=== PATIENT | female | born 1970 | race Caucasian/White ===

== ENCOUNTER 2018-05-27 11:00 | Outpatient (RCR) | payer MEDICAID, SELFPAY ==
--- NOTE | 2018-05-13 13:33 | HMH.OTOPEV ---
OT Inpatient Evaluation Rehab OT Outpatient Eval Start: 05/13/18 13:21 Freq: Status: Active Protocol: Document 05/13/18 13:21 TFRY (Rec: 05/13/18 13:33 TFRY [id number]) Electronically Signed By Kenyatta Multani, OT 05/13/18 13:21 Outpatient Therapy Subjective History Subjective History This is a 47 year old right handed female referred to occupational therapy for left shoulder pain - concerned for LHBT pathology,+/- RTC tendinopathy vs. tear + shoulder stiffness. Patient is unable to recall doing anything spefic to her shoulder. Reports that the pain started approximately 1 month ago and has continued worse. 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 Sleeping Symptom Description Activity Dependent Level of pain today (0-10) 0 Pain scale - at its best (0-10) 0 Pain scale - at its worst (0-10) 9 Shoulder/Elbow Eval Shoulder Objective Measurements Palpation Tenderness tenderness shoulder exam standard left tenderness over the bicipital tendon left shoulder exam standard Shoulder Palpation Findings Tenderness Shoulder ROM Left Shoulder ROM Limitations Pain Shoulder Abduction Active Range of 85 Motion (degrees) Shoulder Abduction Passive Range of 120 Motion (degrees) Shoulder Flexion Active Range of Motion 155 (degrees) Query Text: Shoulder Flexion Passive Range of Motion 156 (degrees) Shoulder External Rotation Active Range 42 of Motion (degrees) Shoulder External Rotation Passive Range 52 of Motion (degrees) Shoulder Internal Rotation Active Range 35 of Motion (degrees) Shoulder Internal Rotation Passive Range 55 of Motion (degrees) Shoulder Extension Active Range of 48 Motion (degrees) Shoulder Extension Passive Range of 55 Motion (degrees) pain with active ROM shoulder exam left standard pain with passive ROM shoulder exam left standard decreased ROM annalise
== END 2018-05-27 11:05 | disposition home or self-care (01) ==
LOC: OT 11:00
PROVIDERS: Visit Provider Orthopaedic Surgery
DX: M25.512 Pain in left shoulder (principal)
CPT/HCPCS: 97014; 97110; 97165; G0283

== ENCOUNTER 2019-10-19 07:40 | Emergency (ER) | payer MEDICAID, SELFPAY ==
[2019-10-19 07:42] VITALS: BP 140/74; PULSE 67; RESP 18; TEMP 36.9; O2SAT 98; BMI 22.7; BMI 26.5
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
[2019-10-19 08:12] VITALS: BP 144/75; PULSE 70; RESP 18; O2SAT 99
[2019-10-19 08:42] VITALS: BP 144/75; PULSE 70; RESP 14; TEMP 36.9; O2SAT 98
== END 2019-10-19 08:43 | disposition home or self-care (01) ==
PROVIDERS: Emergency Provider Emergency Medicine
DX: S29.011A Strain of muscle and tendon of front wall of thorax, initial encounter (principal); I10 Essential (primary) hypertension; F17.210 Nicotine dependence, cigarettes, uncomplicated; X50.0XXA Overexertion from strenuous movement or load, initial encounter
CPT/HCPCS: 71046; 96372; 99282

== ENCOUNTER 2019-11-28 11:59 | Emergency (ER) | payer MEDICAID, SELFPAY ==
[2019-11-28 12:09] VITALS: BP 152/72; PULSE 108; RESP 18; TEMP 36.9; O2SAT 97; BMI 24.7
--- NOTE | 2019-11-28 12:18 | HMH.EDBACK ---
ED Disposition Clinical Impression: Sciatica Qualifiers: Laterality: left Qualified Code(s): M54.32 - Sciatica, left side Disposition: Home, Self-Care Condition on Discharge: Good Instructions: DI for Low Back Pain, DI for Back Pain With Sciatica Prescriptions: methocarbamoL [Methocarbamol 500mg Tablet] 500 mg PO TID PRN #10 tab PRN Reason: pain Prescription Printed Naproxen 500 mg PO BID PRN #10 tab PRN Reason: pain Prescription Printed Referrals: PCP,No [Primary Care Provider] - 3 days - Critical Care Critical Care Time: No Attestation: On 11/28/19, the high probability of a clinically significant, sudden or life threatening deterioration of the following system(s) required my full and direct attention, intervention and personal management. The time I documented below is in addition to time spent performing reported procedures but includes the following listed in this critical care notation. Medical Decision Making - Medical Records Medical records reviewed: Yes: I reviewed the patient's medical records. - Pedro Inquiry Pt receiving controlled substance: No Vital Signs: 11/28/19 12:09 Temperature 98.4 F Temperature Source Oral Pulse Rate [Right Brachial] 108 H Respiratory Rate 18 Blood Pressure [Right Arm] 152/72 H Blood Pressure Mean [Right Arm] 98 Blood Pressure Source [Right Arm] Automatic Cuff Blood Pressure Position [Right Arm] Sitting 02 Sat by Pulse Oximetry 97 Oxygen Delivery Method Room Air Medical Decision Narrative: Patient describes symptoms most consistent with sciatica. She does not have any recent fever, unlikely epidural abscess or discitis. No recent trauma that would prompt imaging for fracture, dislocation. No loss of bowel or bladder control, unlikely cauda equina. Patient did not describe any urinary symptoms and has no CVA tenderness, unlikely obstructive uropathy. Given prescription for anti-inflammatories, muscle relaxers and recommended conservative treatment at home and follow-up with PCP for further management. Return for any worsening or change in symptoms. Back Pain HPI - General Chief Complaint: Back Pain/Injury Stated Complaint: back pain and left leg numb Time Seen by Provider: 11/28/19 12:18 Mode of Arrival: Ambulatory Limitations: No Limitations Description of Symptoms (Recalled from ER Triage Doc. by RN): Low back pain - History of Present Illness HPI Narrative: This is a 49-year-old female who presents to the emergency department for left lower back pain that radiates down the side and around to the front of her left leg. She noticed it yesterday morning when she got up. She has been alternating Tylenol and Motrin with no relief of symptoms. No urinary symptoms. She denies any loss of bowel or bladder control. No fever, abdominal pain. No chest pain or shortness of breath. No injury or trauma. Nothing in particular seems to make her symptoms better or worse including positional changes. - Related Data Previous Rx's Medication Instructions Recorded Naproxen 500 mg PO BID PRN #10 tab 11/28/19 methocarbamoL [Methocarbamol 500mg 500 mg PO TID PRN #10 tab 11/28/19 Tablet] Allergies Allergy/AdvReac Type Severity Reaction Status Date / Time erythromycin base Allergy Mild Verified 11/28/19 12:17 [ERYTHROMYCIN BASE] penicillin G [PENICILLIN G] Allergy Mild Verified 11/28/19 12:17 [facility] History - Hepatitis A Screen Drug use history?: No High risk sexual behaviors?: No History of sexually transmitted infection?: No Currently employed?: No Childcare worker?: No Do you have indoor plumbing?: Yes Do you have electricity?: Yes Attestation statement:: This patient has been screened for Hepatitis A risk factors. I have reviewed the patient's past medical history: Yes 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: Reports:: Hypertension Denies:: Diabetes Mellitus Type 1, Diabetes Mellitus Type 2, MRSA Laterality Cases: Right: Arthroscopy Sh
[2019-11-28 12:44] VITALS: BP 134/94; PULSE 78; RESP 16; TEMP 36.8; O2SAT 97
== END 2019-11-28 12:46 | disposition home or self-care (01) ==
PROVIDERS: Emergency Provider Emergency Medicine
DX: M54.32 Sciatica, left side (principal); I10 Essential (primary) hypertension; F17.210 Nicotine dependence, cigarettes, uncomplicated; Z88.0 Allergy status to penicillin
CPT/HCPCS: 96372; 99281

== ENCOUNTER 2019-12-07 11:24 | Emergency (ER) | payer SELFPAY ==
[2019-12-07 11:31] VITALS: BP 140/113; PULSE 112; RESP 20; TEMP 37.2; O2SAT 97
--- NOTE | 2019-12-07 11:32 | PC.NURSE ---
Trauma Alert Cancelled at [id number]
--- NOTE | 2019-12-07 11:40 | PC.NURSE ---
Pt will not leave v/s monitors on. Will attempt to vitals as pt allows.
[2019-12-07 11:41] VITALS: BMI 25.6
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
--- NOTE | 2019-12-07 11:43 | PC.NURSE ---
Family at bedside
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
[2019-12-07 11:45] LABS: POC Glucose,Bedside 107 (70-110)
[2019-12-07 11:51] LABS: Chloride 105 mmol/L (98-107); Potassium 4.6 mmoL/L (3.5-5.1); Sodium 139 mmol/L (136-145)
--- NOTE | 2019-12-07 11:51 | PC.NURSE ---
Pt to radiology
[2019-12-07 11:54] LABS: Alanine Aminotransferase 26 U/L (12-78); Albumin Level 4.3 g/dl (3.5-5.0); Albumin/Globulin Ratio 1.3 (1.1-1.8); Alkaline Phosphatase 116 U/L (38-126); Anion Gap 11.6 mEq/L (5-15); Aspartate Amino Transferase 37 U/L (14-36); Bilirubin,Total 0.6 mg/dl (0.2-1.3); Blood Urea Nitrogen 15 mg/dl (7-17); Carbon Dioxide 27 mmol/L (22.0-30.0); Creatinine Clearance Estimated 83 mL/min (50-200); Estimated Glomerular Filt Rate 76 ml/min (>60); GFR (African American) 92 ML/MIN (>60); Globulin 3.4 g/dL (1.3-3.2); Total Protein,Serum 7.7 g/dl (6.3-8.2)
[2019-12-07 11:55] LABS: Calcium 9.9 mg/dl (8.4-10.2); Glucose 107 mg/dl (74-100)
[2019-12-07 11:58] LABS: Activated Partial Thrombo Time 18.3 seconds (23.6-34.0); INR 0.97 (0.9-1.1)
[2019-12-07 11:59] LABS: Ethyl Alcohol < 10 mg/dl (0-10)
[2019-12-07 12:41] LABS: Microscopic, Urine URINE MICROSCOPIC (MICROSCOPIC)
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
[2019-12-07 12:43] LABS: Appearance,Urine CLEAR (Clear); Bilirubin,Urine Negative (Negative); Blood, Urine Negative (Negative); Color,Urine YELLOW (Yellow); Glucose,Urine (UA) Negative (Negative); Ketones,Urine Negative (Negative); Leukocyte Esterase,Urine 1+ (Negative); Nitrate,Urine Negative (Negative); PH,Urine 6.5 (5.0-8.5); Protein,Urine Negative (Negative); Specific Gravity, Urine <= 1.005 (1.005-1.030); Urobilinogen,Urine 0.2 EU/dl (0.2)
[2019-12-07 12:56] LABS: Amphetamine/Metha Screen,Urine Negative ng/ml (<1000)
[2019-12-07 12:58] LABS: Bacteria,Urine 1+ /lpf; Barbiturates Screen,Urine Negative ng/ml (<200); RBC,Urine Occasional #/hpf (0-3)
[2019-12-07 12:59] LABS: Benzodiazepines Screen,Urine Negative ng/ml (<200); Cannabinoid Screen,Urine Negative ng/ml (<50)
[2019-12-07 13:00] LABS: Cocaine Screen,Urine Negative ng/ml (<300)
[2019-12-07 13:01] LABS: Methadone Screen,Urine Negative ng/ml (<300); Opiate Screen,Urine Negative ng/ml (<300)
[2019-12-07 13:02] LABS: Phencyclidine Screen,Urine Negative ng/ml (<25)
[2019-12-07 13:19] LABS: Basophils # 0.1 K/mm3 (0-0.2); Basophils % 1.2 % (0.1-2.0); Eosinophils # 0.8 K/mm3 (0.0-0.4); Eosinophils % 7.2 % (0.1-12.0); Hemoglobin 15.7 g/dL (12.2-16.2); Lymphocytes # 3.4 K/mm3 (0.7-4.5); Lymphocytes % 31.4 % (10-50); Mean Corpuscular HGB Conc 34.9 g/dL (31.8-35.4); Mean Corpuscular Hemoglobin 29.7 pg (27.0-31.2); Mean Platelet Volume 7.4 fl (7.4-10.4); Monocytes # 0.4 K/mm3 (0.1-1.0); Monocytes % 3.9 % (1.7-9.3); Neutrophils % 56.4 % (37.0-80.0); Platelet Count 274 K/mm3 (142-424); Red Cell Distribution Width 13.2 % (11.5-17.5); White Blood Count 10.6 K/mm3 (4.8-10.8)
--- NOTE | 2019-12-07 13:29 | PC.NURSE ---
Removed C-Collar per MD request. Pt is flailing around in bed stating she just wants to go the fuck home Pt's mother is crying, trying to calm pt down.
[2019-12-07 13:38] VITALS: BP 148/100; PULSE 102; RESP 20; TEMP 37.1; O2SAT 100
== END 2019-12-07 13:40 | disposition home or self-care (01) ==
PROVIDERS: Emergency Provider Family Medicine
DX: S06.0X0A Concussion without loss of consciousness, initial encounter (principal); V47.1XXA Car passenger injured in collision with fixed or stationary object in nontraffic accident, initial encounter; F15.10 Other stimulant abuse, uncomplicated; F11.10 Opioid abuse, uncomplicated; I10 Essential (primary) hypertension; F17.210 Nicotine dependence, cigarettes, uncomplicated; Z88.0 Allergy status to penicillin
CPT/HCPCS: 70450; 71045; 72125; 72170; 74177; 80053; 80305; 81001; 82962; 85025; 85610; 85730; 87086; 96374; 99282; J2310; Q9967

== ENCOUNTER 2020-03-24 16:36 | Emergency (ER) | payer MEDICAID, SELFPAY ==
--- NOTE | 2020-03-24 16:42 | HMH.EDGENADL ---
ED Disposition Clinical Impression: Otitis media Qualifiers: Otitis media type: unspecified nonsuppurative Laterality: left Qualified Code(s): H65.92 - Unspecified nonsuppurative otitis media, left ear Disposition: Home, Self-Care Condition on Discharge: Good Additional Instructions: Take antibiotic as prescribed. Continue using [id number] medications. Try Flonase nasal spray for congestion. Also try Sudafed as you have no history of high blood pressure for decongestion. Return immediately if any new or worsening symptoms. Prescriptions: Azithromycin 250 mg PO DAILY 4 Days #4 tab Transmission Status: Pending to [id number] Referrals: PCP,No [Primary Care Provider] - - Critical Care Critical Care Time: No Attestation: On , the high probability of a clinically significant, sudden or life threatening deterioration of the following system(s) required my full and direct attention, intervention and personal management. The time I documented below is in addition to time spent performing reported procedures but includes the following listed in this critical care notation. Medical Decision Making - Medical Records Medical records reviewed: Yes: I reviewed the patient's medical records. - Pedro Inquiry Pt receiving controlled substance: No Medical Decision Narrative: Patient presents with left ear pain. Physical exam consistent with otitis media to the left side. Again, no pain on palpation of pinna or overlying changes to the mastoid. First dose of antibiotic given. Patient does have a penicillin allergy so azithromycin use. Also instructed patient to use Flonase and [id number] decongestions as there may be some associated eustachian tube dysfunction. Patient verbalized understanding agree. Patient had tolerated antibiotic well and sent home with prescription. She will return immediately if any new or worsening symptoms. Assessment: Left-sided otitis media Disposition: Home with follow-up General Adult HPI - General Stated complaint: L ear pain, cough Time Seen by Provider: 03/24/20 16:50 - History of Present Illness HPI narrative: Patient 49-year-old female history of tobacco abuse presented with left ear pain. Patient states for the past several days she has had left ear pain and pressure. She endorses mild cough. She states she does smoke daily. Nonproductive cough. No fever/chills, decreased p.o. intake, sore throat, other new symptoms. She did take Tylenol and some ibuprofen with some relief of her pain. - Related Data Previous Rx's Medication Instructions Recorded Azithromycin 250 mg PO DAILY 4 Days #4 tab 03/24/20 Allergies Allergy/AdvReac Type Severity Reaction Status Date / Time erythromycin base Allergy Mild Verified 03/24/20 16:53 [ERYTHROMYCIN BASE] penicillin G [PENICILLIN G] Allergy Mild Verified 03/24/20 16:53 [facility] History - Hepatitis A Screen Attestation statement:: This patient has been screened for Hepatitis A risk factors. 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: Reports:: Hypertension Denies:: Diabetes Mellitus Type 1, Diabetes Mellitus Type 2, MRSA Laterality Cases: Right: Arthroscopy Shoulder, Bilateral: Other Other Surgeries: Yes: Appendectomy, Cholecystectomy, Hysterectomy-Total Amputation: No - Social History Smoking Status: Current every day smoker Tobacco Type: cigarettes # Packs/Day (cigarettes): 1 Alcohol Intake: never Substance Use Type: former substance user Occupational Status: employed Housing: house Household Members: children Family Hx:: No significant family history ROS Obtained: Yes All systems reviewed & no additional complaints Physical Exam - General General appearance: alert, in no apparent distress - Head Head exam: atraumatic, normocephalic - Eye Eye exam: Present: normal appearance, PERRL - ENT ENT exam: Present: normal oropharynx, mucous membranes moist (Left TM bulging and erythematous; no pain on palpati
[2020-03-24 16:43] VITALS: BP 136/103; PULSE 124; RESP 18; TEMP 36.4; O2SAT 98; BMI 24.7
[2020-03-24 17:20] VITALS: BP 138/77; PULSE 118; RESP 20; TEMP 36.4; O2SAT 99
--- NOTE | 2020-03-24 17:20 | PC.NURSE ---
PT WAS WATCHED FOR 20 MINUTES AFTER RECEIVING MEDS . NO PROBLEMS NOTED PT D/C ADVISED TO COME BACK WITH ANY PROBLEMS
== END 2020-03-24 17:20 | disposition home or self-care (01) ==
PROVIDERS: Emergency Provider Emergency Medicine
DX: H65.92 Unspecified nonsuppurative otitis media, left ear (principal); F17.210 Nicotine dependence, cigarettes, uncomplicated; I10 Essential (primary) hypertension; Z88.0 Allergy status to penicillin
CPT/HCPCS: 99281

== ENCOUNTER 2020-07-12 12:49 | Emergency (ER) | payer MEDICAID, SELFPAY ==
[2020-07-12 12:50] VITALS: BP 156/94; PULSE 103; RESP 166; TEMP 36.9; O2SAT 98; BMI 25.6
--- NOTE | 2020-07-12 13:03 | HMH.EDGENADL ---
ED Disposition Clinical Impression: Seasonal allergies Upper respiratory infection Qualifiers: URI type: unspecified viral URI Qualified Code(s): J06.9 - Acute upper respiratory infection, unspecified Disposition: Home, Self-Care Condition on Discharge: Good Instructions: DI for Sinusitis Prescriptions: Cetirizine HCl 10 mg PO DAILY #30 tab Transmission Status: Received by [id number] Referrals: PCP,No [Primary Care Provider] - Iain Lawson MD [Staff Physician] - Forms: Work/School Release Time of Disposition: 13:06 - Critical Care Critical Care Time: No Attestation: On , the high probability of a clinically significant, sudden or life threatening deterioration of the following system(s) required my full and direct attention, intervention and personal management. The time I documented below is in addition to time spent performing reported procedures but includes the following listed in this critical care notation. Medical Decision Making - Medical Records Medical records reviewed: Yes: I reviewed the patient's medical records. - Pedro Inquiry Pt receiving controlled substance: No Vital Signs: 07/12/20 12:50 07/12/20 14:10 Temperature 98.4 F 98 F Temperature Source Oral Oral Pulse Rate 75 Pulse Rate [Radial] 103 H Respiratory Rate 166 H 166 H Blood Pressure 153/75 H Blood Pressure [Right Arm] 156/94 H Blood Pressure Mean [Right Arm] 114 Blood Pressure Position Sitting Blood Pressure Position [Right Arm] Sitting 02 Sat by Pulse Oximetry 98 Oxygen Delivery Method Room Air Room Air Orders (Tests/Meds): ED MEDICATIONS Discontinued Medications Generic Name Dose Route Start Last Admin Trade Name Freq PRN Reason Stop Dose Admin Dexamethasone Sodium Phosphate 10 mg 07/12/20 13:04 07/12/20 13:29 Dexamethasone 4mg/Ml 5ml Mdv PO 07/12/20 13:05 10 mg ONCE ONE Administration Medical Decision Narrative: In summary this is a 49-year-old female presenting to the emergency department with sinus congestion, ear pain, sore throat. Patient clinically stable on arrival. Vital signs within normal limits. Most likely diagnosis is viral upper respiratory infection. Concern for COVID-19. Physical exam does not show signs of acute otitis media or strep pharyngitis. Will obtain Covid test. Patient given 10 mg oral Decadron. Given prescription for allergy medication. Stable for discharge. General Adult HPI - General Chief complaint: Upper Respiratory Infection Stated complaint: sore throat, cough Time Seen by Provider: 07/12/20 13:30 Mode of Arrival: Ambulatory Limitations: No Limitations Description of Symptoms (Recalled from ER Triage Doc. by RN): TO ED PER PVT CAR WITH C/O COUGH, RUNNY NOSE, SORETHROAT, LT EAR PAIN X 2-3 DAYS. - History of Present Illness HPI narrative: 49-year-old female presenting to the emergency department with sinus congestion, sore throat, cough. Symptoms started 2 to 3 days ago. She had runny nose and itchy eyes. Now has developed a sore throat. Has a dry, hacking cough. Also has ear pain, worse on the left than the right. No fevers, chills. No neck pain. No chest pain or abdominal pain. She has not taken any medications for her symptoms. Does not take allergy medication. Symptoms got worse yesterday evening when she was at work, having to go inside and outside frequently. Believes that the changes in temperature affected her symptoms. Has not received the Covid vaccination - Related Data Previous Rx's Medication Instructions Recorded Azithromycin 250 mg PO DAILY 4 Days #4 tab 03/24/20 Cetirizine HCl 10 mg PO DAILY #30 tab 07/12/20 Allergies Allergy/AdvReac Type Severity Reaction Status Date / Time erythromycin base Allergy Mild Verified 03/24/20 16:53 [ERYTHROMYCIN BASE] penicillin G [PENICILLIN G] Allergy Mild Verified 03/24/20 16:53 [facility] History - Hepatitis A Screen Drug use history?: No
[2020-07-12 14:10] VITALS: BP 153/75; PULSE 75; RESP 166; TEMP 36.6; O2SAT 98
== END 2020-07-12 14:15 | disposition home or self-care (01) ==
PROVIDERS: Emergency Provider Emergency Medicine
DX: J06.9 Acute upper respiratory infection, unspecified (principal); J30.2 Other seasonal allergic rhinitis; Z20.822 Contact with and (suspected) exposure to COVID-19; I10 Essential (primary) hypertension; F17.210 Nicotine dependence, cigarettes, uncomplicated
CPT/HCPCS: 99282; U0003

== ENCOUNTER 2020-08-29 08:45 | Emergency (ER) | payer MEDICAID, SELFPAY ==
[2020-08-29] VITALS (11 sets, daily range): BP systolic 147–174; BP diastolic 71–125; PULSE 77–109; RESP 16–19; TEMP 36.7; O2SAT 95–100; BMI 23.8
[2020-08-29 09:14] LABS: Basophils # 0.1 K/mm3 (0-0.2); Basophils % 0.5 % (0.1-2.0); Eosinophils # 0.2 K/mm3 (0.0-0.4); Eosinophils % 1.7 % (0.1-12.0); Hematocrit 47.6 % (37.0-47.0); Hemoglobin 16.2 g/dL (12.2-16.2); Lymphocytes # 1.5 K/mm3 (0.7-4.5); Lymphocytes % 16.6 % (10-50); Mean Corpuscular HGB Conc 34.1 g/dL (31.8-35.4); Mean Corpuscular Hemoglobin 28.2 pg (27.0-31.2); Mean Corpuscular Volume 82.7 fl (81-99); Mean Platelet Volume 7.5 fl (7.4-10.4); Monocytes # 0.3 K/mm3 (0.1-1.0); Monocytes % 3.4 % (1.7-9.3); Neutrophils # 7.2 K/mm3 (1.8-7.8); Neutrophils % 77.8 % (37.0-80.0); Platelet Count 325 K/mm3 (142-424); Red Blood Count 5.76 M/mm3 (4.20-5.40); Red Cell Distribution Width 13.5 % (11.5-17.5); White Blood Count 9.2 K/mm3 (4.8-10.8)
[2020-08-29 09:20] LABS: Chloride 100 mmol/L (98-107); Potassium 4.6 mmoL/L (3.5-5.1); Sodium 134 mmol/L (136-145)
[2020-08-29 09:23] LABS: Alanine Aminotransferase 24 U/L (12-78); Albumin Level 5.1 g/dl (3.5-5.0); Albumin/Globulin Ratio 1.2 (1.1-1.8); Alkaline Phosphatase 186 U/L (38-126); Anion Gap 16.6 mEq/L (5-15); Aspartate Amino Transferase 29 U/L (14-36); Bilirubin,Total 0.9 mg/dl (0.2-1.3); Blood Urea Nitrogen 28 mg/dl (7-17); Carbon Dioxide 22 mmol/L (22.0-30.0); Creatinine Clearance Estimated 48 mL/min (50-200); Estimated Glomerular Filt Rate 43 ml/min (>60); GFR (African American) 52 ML/MIN (>60); Globulin 4.2 g/dL (1.3-3.2); Total Protein,Serum 9.3 g/dl (6.3-8.2)
[2020-08-29 09:24] LABS: Calcium 9.7 mg/dl (8.4-10.2); Glucose 157 mg/dl (74-100)
--- NOTE | 2020-08-29 09:39 | HMH.EDGENADL ---
ED Disposition Clinical Impression: Gastroenteritis, Dehydration, Hypertension Disposition: Home, Self-Care Condition on Discharge: Fair Instructions: DI for Diarrhea and Traveler's Diarrhea -- Adult, DI for Diarrhea and Traveler's Diarrhea -- Child, DI for Nausea -- Adult, DI for Nausea -- Child Additional Instructions: Clear fluids today use Zofran if nauseous follow-up with PMD when feeling better to recheck blood pressure and possible treatment wear mask until Covid results. Prescriptions: Ondansetron [Zofran 4mg ODT] 4 mg PO TIDP PRN #16 tab.rapdis PRN Reason: Nausea Transmission Status: Pending to [id number] Referrals: Provider,Referral, [Primary Care Provider] - - Critical Care Critical Care Time: No Attestation: On 08/29/20, the high probability of a clinically significant, sudden or life threatening deterioration of the following system(s) required my full and direct attention, intervention and personal management. The time I documented below is in addition to time spent performing reported procedures but includes the following listed in this critical care notation. Medical Decision Making - Medical Records Medical records reviewed: Yes: I reviewed the patient's medical records. - Pedro Inquiry Pt receiving controlled substance: No Vital Signs: 08/29/20 08:46 08/29/20 09:01 08/29/20 09:30 Temperature 98.1 F Temperature Source Oral Pulse Rate 109 H 97 H Pulse Rate [Right] 101 H Respiratory Rate 16 Blood Pressure 149/125 H 174/103 H Blood Pressure [Right Arm] 171/94 H Blood Pressure Mean 133 118 Blood Pressure Mean [Right Arm] 119 02 Sat by Pulse Oximetry 97 97 95 Oxygen Delivery Method Room Air 08/29/20 10:00 08/29/20 10:30 08/29/20 10:47 Temperature Temperature Source Pulse Rate 91 H 77 86 Pulse Rate [Right] Respiratory Rate Blood Pressure 157/80 H 160/89 H 147/86 H Blood Pressure [Right Arm] Blood Pressure Mean 105 112 Blood Pressure Mean [Right Arm] 02 Sat by Pulse Oximetry 99 100 99 Oxygen Delivery Method 08/29/20 11:55 Temperature Temperature Source Pulse Rate 78 Pulse Rate [Right] Respiratory Rate 18 Blood Pressure 156/71 H Blood Pressure [Right Arm] Blood Pressure Mean Blood Pressure Mean [Right Arm] 02 Sat by Pulse Oximetry 97 Oxygen Delivery Method Room Air - Lab Data Lab results reviewed: Yes: I reviewed the patient's lab results. Lab Results 08/29/20 09:02: WBC 9.2, RBC 5.76 H, Hgb 16.2, Hct 47.6 H, MCV 82.7, MCH 28.2, MCHC 34.1, RDW 13.5, Plt Count 325, MPV 7.5, Neut % (Auto) 77.8, Lymph % (Auto) 16.6, [place] % (Auto) 3.4, Eos % (Auto) 1.7, Baso % (Auto) 0.5, Neut # (Auto) 7.2, Lymph # (Auto) 1.5, [place] # (Auto) 0.3, Eos # (Auto) 0.2, Baso # (Auto) 0.1 08/29/20 09:02: Sodium 134 L, Potassium 4.6, Chloride 100, Carbon Dioxide 22, Anion Gap 16.6 H, BUN 28 H, Creatinine 1.30 H, Estimated Creat Clear 48, Estimated GFR 43 L, Est GFR ( Amer) 52 L, Glucose 157 H, Calcium 9.7, Total Bilirubin 0.9, AST 29, ALT 24, Alkaline Phosphatase 186 H, Total Protein 9.3 H, Albumin 5.1 H, Globulin 4.2 H, Albumin/Globulin Ratio 1.2 Result diagrams: 08/29/20 09:02 08/29/20 09:02 Orders (Tests/Meds): ED MEDICATIONS Discontinued Medications Generic Name Dose Route Start Last Admin Trade Name Freq PRN Reason Stop Dose Admin Hyoscyamine 0.125 mg 08/29/20 10:18 08/29/20 10:30 Hyoscyamine 0.125mg Tablet SL 08/29/20 10:19 0.125 mg ONCE ONE Administration Lactated Ringer's 1,000 mls @ 999 mls/hr 08/29/20 09:15 08/29/20 09:11 Lactated Ringer's 1000 Ml Bag IV 08/29/20 10:15 999 mls/hr .Q1H1M LIVIA Administration Ketorolac Tromethamine 15 mg 08/29/20 10:20 08/29/20 10:30 Ketorolac 30mg/Ml Vial IV 08/29/20 10:21 15 mg ONCE ONE Administration Ondansetron HCl 4 mg 08/29/20 09:06 08/29/20 09:11 Ondansetron 4mg/2ml Vial IV 08/29/20 09:07 4 mg ONCE ONE Administration O
== END 2020-08-29 13:05 | disposition home or self-care (01) ==
PROVIDERS: Emergency Provider Emergency Medicine
DX: K52.9 Noninfective gastroenteritis and colitis, unspecified (principal); E86.0 Dehydration; I10 Essential (primary) hypertension; Z79.899 Other long term (current) drug therapy
CPT/HCPCS: 80053; 85025; 96365; 96375; 99282; J2405; U0003

== ENCOUNTER 2021-01-23 17:15 | Emergency (ER) | payer MEDICAID, SELFPAY ==
[2021-01-23 18:08] VITALS: BP 125/79; PULSE 83; RESP 19; TEMP 36.8; O2SAT 97; BMI 26.5
[2021-01-23 18:14] LABS: UTC Strep Screen (Rapid) Positive (Negative)
--- NOTE | 2021-01-23 18:20 | HMH.EDUTC ---
[facility] [place] Disposition Clinical Impression: Strep throat Disposition: Home, Self-Care Condition on Discharge: Good Instructions: Strep Throat, DI for Strep Throat Additional Instructions: *Monitor Temp, Over the counter Motrin or Tylenol as directed/as needed Tylenol every 4 hours and Motrin every 6 hours (as long as your family doctor has told you that you can take it) for fever or pain. and straight to ER if unable to lower temp less than 101.0 after medication given *Warm salt water gargles may help to soothe the throat *Throat Lozenges *Warm fluids like tea with honey may help to soothe the throat *Sleep elevated *Humidifier/Vaporizer *If you did not take Penicillin shot or was unable to, start taking antibiotic immediately and make sure that you take it for the FULL length of time although you should start to feel better in 24-48 hours *change toothbrush and toothpaste 24-48 hours after starting to take antibiotics so you do not reinfect yourself Monitor Temp. Tylenol and/or Ibuprofen as needed. ER if fever is no less than 101 despite alternating Tylenol and Ibuprofen * Encourage fluids, water, Gatorade, powerade, pedialyte if infant/toddler/or child *Cold fluids, popsicles and ice cream may feel good on his throat Follow up IMMEDIATELY for new or worsening symptoms or no Noticeable improvement over the next 48-72 hours. 911 for difficulty breathing or swallowing Prescriptions: Cefdinir [Omnicef 300mg Capsule] 300 mg PO BID #20 cap Transmission Status: Received by [id number] Referrals: Provider,Referral, [Primary Care Provider] - As needed Forms: Work/School Release Time of Disposition: 18:29 Medical Decision Making - Pedro Inquiry Pt receiving controlled substance: No Pedro was queried for this patient: No Vital Signs: 01/23/21 18:08 Temperature 98.3 F Temperature Source Oral Pulse Rate [Left] 83 Respiratory Rate 19 Blood Pressure [Right Arm] 125/79 Blood Pressure Mean [Right Arm] 94 02 Sat by Pulse Oximetry 97 - Lab Data Lab results reviewed: Yes: I reviewed the patient's lab results. Lab Results 01/23/21 18:04: Strep Scn [facility] Positive A Medical Decision Narrative: Patient states that she is allergic to PCN but has taken Cephalsporins in the past without complications or reactions [facility] [place] HPI - General Stated complaint: Sore throat,Cough,Runny nose Time Seen by Provider: 01/23/21 18:20 Mode of Arrival: Ambulatory Source of Information: Patient Limitations: No Limitations Description of Symptoms (Recalled from Triage Doc. by RN): pt c/o ear ache, sore throat and cough ongoing since yesterday. HEENT Symptoms (Recalled from RN notes): Yes (ears ache and sore throat) Resp Symptoms (Recalled from RN notes): Yes (cough) Skin Symptoms (Recalled from RN notes): No MS Symptoms (Recalled from RN notes): No Functional Status (Recalled from RN notes): na - History of Present Illness Provider Complaint: Patient states that she started feeling bad yesterday State that she has been having ear pain, sore scratchy throat and cough States that today she was still feeling bad so she came in - Related Data Previous Rx's Medication Instructions Recorded Azithromycin 250 mg PO DAILY 4 Days #4 tab 03/24/20 Cetirizine HCl 10 mg PO DAILY #30 tab 07/12/20 Ondansetron [Zofran 4mg ODT] 4 mg PO TIDP PRN #16 tab.rapdis 08/29/20 Cefdinir [Omnicef 300mg Capsule] 300 mg PO BID #20 cap 01/23/21 Allergies Allergy/AdvReac Type Severity Reaction Status Date / Time erythromycin base Allergy Mild Verified 03/24/20 16:53 [ERYTHROMYCIN BASE] penicillin G [PENICILLIN G] Allergy Mild Verified 03/24/20 16:53 - Worker's Comp Is this a Worker's Comp case?: No [facility] History - Hepatitis A Screen Drug use history?: No High risk sexual behaviors?: No History of sexually transmitted infection?: No Currently employed?: No Childcare worker?: No Do you have indoor plumbing?: Y
[2021-01-23 18:59] VITALS: BP 125/79; PULSE 83; RESP 16; TEMP 36.8
== END 2021-01-23 19:00 | disposition home or self-care (01) ==
PROVIDERS: Emergency Provider Nurse Practitioner
DX: J02.0 Streptococcal pharyngitis (principal); Z88.0 Allergy status to penicillin; I10 Essential (primary) hypertension; F17.210 Nicotine dependence, cigarettes, uncomplicated
CPT/HCPCS: 87880; 99202; G0463

== ENCOUNTER 2021-03-05 08:13 | Emergency (ER) | payer MEDICAID, SELFPAY ==
[2021-03-05 08:14] VITALS: BP 178/93; PULSE 99; RESP 16; TEMP 36.6; O2SAT 99; BMI 25.6
[2021-03-05 08:30] VITALS: BP 145/90; PULSE 93; O2SAT 98
--- NOTE | 2021-03-05 08:41 | HMH.EDGENADL ---
ED Disposition Clinical Impression: Raynaud phenomenon Disposition: Home, Self-Care Condition on Discharge: Fair Referrals: Iain Lawson MD [Staff Physician] - - Critical Care Critical Care Time: No Attestation: On 03/05/21, the high probability of a clinically significant, sudden or life threatening deterioration of the following system(s) required my full and direct attention, intervention and personal management. The time I documented below is in addition to time spent performing reported procedures but includes the following listed in this critical care notation. Medical Decision Making - Pedro Inquiry Pt receiving controlled substance: Yes Pedro was queried for this patient: No Risks and benefits of using a controlled substance: were discussed with pt by me Vital Signs: 03/05/21 08:14 03/05/21 08:30 Temperature 97.9 F Temperature Source Oral Pulse Rate 93 H Pulse Rate [Right Radial] 99 H Respiratory Rate 16 Blood Pressure 145/90 H Blood Pressure [Right Arm] 178/93 H Blood Pressure Mean 104 Blood Pressure Mean [Right Arm] 121 Blood Pressure Source [Right Arm] Automatic Cuff Blood Pressure Position [Right Arm] Sitting 02 Sat by Pulse Oximetry 99 98 Oxygen Delivery Method Room Air - Lab Data Lab Results 03/05/21 08:35: WBC 7.1, RBC 5.03, Hgb 14.9, Hct 42.6, MCV 84.8, MCH 29.5, MCHC 34.9, RDW 13.0, Plt Count 228, MPV 8.1, Neut % (Auto) 47.5, Lymph % (Auto) 35.8, [place] % (Auto) 5.2, Eos % (Auto) 10.1, Baso % (Auto) 1.5, Neut # (Auto) 3.4, Lymph # (Auto) 2.6, [place] # (Auto) 0.4, Eos # (Auto) 0.7 H, Baso # (Auto) 0.1 03/05/21 08:35: PT 10.3, INR 0.90, APTT 24.8 03/05/21 08:35: Sodium 137, Potassium 3.5, Chloride 106, Carbon Dioxide 25, Anion Gap 9.5, BUN 15, Creatinine 0.70, Estimated Creat Clear 94, Estimated GFR 88, Est GFR ( Amer) 106, Glucose 98, Calcium 9.3, Total Bilirubin 0.4, AST 31, ALT 25, Alkaline Phosphatase 118, Total Protein 7.5, Albumin 4.4, Globulin 3.1, Albumin/Globulin Ratio 1.4 Result diagrams: 03/05/21 08:35 03/05/21 08:35 Medical Decision Narrative: Is a 50-year-old female with no past medical history presenting to the ED with numbness of her fingertips. Patient is awake, alert, not in acute distress. Patient is a medically stable, afebrile. Patient's physical exam is unremarkable. Differential includes but is not limited to Raynaud's phenomena, changes secondary to smoking, low concern for a peripheral or central neurological process, low concern for a arterial ischemic process. Basic lab work was performed which was unremarkable. Patient was educated on smoking cessation and provided nurses for smoking cessation. Patient was provided with a primary care physician to follow-up with. General Adult HPI - General Chief complaint: PAIN Stated complaint: fingertips numb and up to elbows Time Seen by Provider: 03/05/21 08:41 Mode of Arrival: Ambulatory Limitations: No Limitations Description of Symptoms (Recalled from ER Triage Doc. by RN): Pt reports having numbness and pain in her fingertips on rosangela hands except for 5th finger on rosangela hands. Pt reports pain in rosangela wrists and forearms also. Pt reports these symptoms have been going on for months but worse today while at work. Pt states no injury - History of Present Illness HPI narrative: Patient is a 52-year-old female with no past medical history presenting to the ED with numbness. Patient states that for proximally a month and a half patient has noticed that her fingertips of her both hands have been slightly numb. Patient states that this is contributing to [id number] job. Patient states that the numbness does not extend beyond her fingers. Patient states that she has noticed at the start as the cold weather started. Patient states that nothing makes it better or worse. Patient does not notice any discoloration of her fingertips associated with the numbness. She denies any weakness. Sta
[2021-03-05 08:52] LABS: Basophils # 0.1 K/mm3 (0-0.2); Basophils % 1.5 % (0.1-2.0); Eosinophils # 0.7 K/mm3 (0.0-0.4); Eosinophils % 10.1 % (0.1-12.0); Hematocrit 42.6 % (37.0-47.0); Hemoglobin 14.9 g/dL (12.2-16.2); Lymphocytes # 2.6 K/mm3 (0.7-4.5); Lymphocytes % 35.8 % (10-50); Mean Corpuscular HGB Conc 34.9 g/dL (31.8-35.4); Mean Corpuscular Hemoglobin 29.5 pg (27.0-31.2); Mean Corpuscular Volume 84.8 fl (81-99); Mean Platelet Volume 8.1 fl (7.4-10.4); Monocytes # 0.4 K/mm3 (0.1-1.0); Monocytes % 5.2 % (1.7-9.3); Neutrophils # 3.4 K/mm3 (1.8-7.8); Neutrophils % 47.5 % (37.0-80.0); Platelet Count 228 K/mm3 (142-424); Red Blood Count 5.03 M/mm3 (4.20-5.40); White Blood Count 7.1 K/mm3 (4.8-10.8)
[2021-03-05 09:00] VITALS: BP 140/74; PULSE 58; O2SAT 97
[2021-03-05 09:08] LABS: Activated Partial Thrombo Time 24.8 seconds (22.8-30.6); Prothrombin Time 10.3 seconds (10.1-12.5)
[2021-03-05 09:09] LABS: Alanine Aminotransferase 25 U/L (12-78); Albumin Level 4.4 g/dl (3.5-5.0); Albumin/Globulin Ratio 1.4 (1.1-1.8); Alkaline Phosphatase 118 U/L (38-126); Anion Gap 9.5 mEq/L (5-15); Aspartate Amino Transferase 31 U/L (14-36); Bilirubin,Total 0.4 mg/dl (0.2-1.3); Blood Urea Nitrogen 15 mg/dl (7-17); Calcium 9.3 mg/dl (8.4-10.2); Carbon Dioxide 25 mmol/L (22.0-30.0); Chloride 106 mmol/L (98-107); Creatinine Clearance Estimated 94 mL/min (50-200); Estimated Glomerular Filt Rate 88 ml/min (>60); GFR (African American) 106 ML/MIN (>60); Globulin 3.1 g/dL (1.3-3.2); Glucose 98 mg/dl (74-100); Potassium 3.5 mmoL/L (3.5-5.1); Sodium 137 mmol/L (136-145); Total Protein,Serum 7.5 g/dl (6.3-8.2)
[2021-03-05 09:29] VITALS: BP 130/77; PULSE 80; O2SAT 98
[2021-03-05 09:45] VITALS: BP 130/77; PULSE 81; RESP 18; TEMP 36.5; O2SAT 98
== END 2021-03-05 09:45 | disposition home or self-care (01) ==
PROVIDERS: Emergency Provider Emergency Medicine
DX: I73.00 Raynaud's syndrome without gangrene (principal); I10 Essential (primary) hypertension; F17.210 Nicotine dependence, cigarettes, uncomplicated; Z88.0 Allergy status to penicillin; Z79.899 Other long term (current) drug therapy
CPT/HCPCS: 80053; 85025; 85610; 85730; 99282

== ENCOUNTER 2021-04-09 17:49 | Emergency (ER) | payer MEDICAID, SELFPAY ==
[2021-04-09 17:50] VITALS: BP 126/81; PULSE 104; RESP 16; TEMP 37.1; O2SAT 98; BMI 26.5
[2021-04-09 18:08] VITALS: BP 139/76; PULSE 107; RESP 18; TEMP 37; O2SAT 97; BMI 26.5
[2021-04-09 18:40] LABS: UTC Influenza A Antigen Negative (Negative)
[2021-04-09 18:41] LABS: UTC Influenza B Antigen Negative (Negative)
--- NOTE | 2021-04-09 18:53 | HMH.EDUTC ---
[facility] [place] Disposition Clinical Impression: Viral syndrome, Exposure to COVID-19 virus Disposition: Home, Self-Care Condition on Discharge: Good Instructions: DI for Viral Syndrome, DI for COVID-19 (Suspected or Confirmed ), Preventing the Spread of Coronavirus Discharge Instructions Additional Instructions: *Monitor Temp, Over the counter Motrin or Tylenol as directed/as needed Tylenol every 4 hours and Motrin every 6 hours (as long as your family doctor has told you that you can take it) for fever or pain. and straight to ER if unable to lower temp less than 101.0 after medication given *Warm salt water gargles may help to soothe the throat *Throat Lozenges *Warm fluids like tea with honey may help to soothe the throat *Sleep elevated *Humidifier/Vaporizer Follow up IMMEDIATELY for new or worsening symptoms or no Noticeable improvement over the next 48-72 hours. 911 for difficulty breathing or swallowing You were tested for today for COVID19 your test result should be back in the next 24-48 hours, you may check your results on the [facility] My Health Portal if you have trouble logging on you may call support to help you You was given a handout with instructions for Self Quarantine and Self isolation for while you wait on test results and what to do if they are positive If you are positive the Health Dept will be contacting you also Make sure to take your Vitamins Vit. C Vit D and Zinc if you can take them Referrals: Iain Lawson MD [Primary Care Provider] - As needed Forms: Work/School Release Time of Disposition: 19:00 Medical Decision Making - Pedro Inquiry Pt receiving controlled substance: No Pedro was queried for this patient: No Vital Signs: 04/09/21 17:50 04/09/21 18:08 Temperature 98.8 F 98.6 F Temperature Source Oral Oral Pulse Rate [Radial] 104 H 107 H Respiratory Rate 16 18 Blood Pressure [Right Arm] 126/81 139/76 Blood Pressure Mean [Right Arm] 96 97 Blood Pressure Position [Right Arm] Sitting 02 Sat by Pulse Oximetry 98 97 Oxygen Delivery Method Room Air - Lab Data Lab results reviewed: Yes: I reviewed the patient's lab results. Lab Results 04/09/21 18:17: Influenza Type A Ag Negative, Influenza Type B Ag Negative Orders (Tests/Meds): ORDERS Category Date Time Status Covid-19 Nasal PCR ([facility]) Routine Lab 04/09/21 18:15 Received [facility] [place] HPI - General Stated complaint: EXPOSED,BODY ACHES,cordero,rUNNY NOSE Time Seen by Provider: 04/09/21 18:53 Mode of Arrival: Ambulatory Source of Information: Patient Limitations: No Limitations Description of Symptoms (Recalled from Triage Doc. by RN): pt c/o nasal drainage, CORDERO, fever, chills and myalgia. HEENT Symptoms (Recalled from RN notes): Yes Resp Symptoms (Recalled from RN notes): No Skin Symptoms (Recalled from RN notes): No MS Symptoms (Recalled from RN notes): No Functional Status (Recalled from RN notes): wnl - History of Present Illness Provider Complaint: Patient states that she was recently exposed to someone that has tested positive for COVID states that she has recently started to have body aches, chills, fever and feeling tired States that she was concerned that she may have COVID and came in wanting to get tested - Related Data Home Medications Medication Instructions Recorded Confirmed buprenorphine 8 mg-naloxone 2 mg tab SUBLINGUAL 03/11/21 03/11/21 sublingual tablet Previous Rx's Medication Instructions Recorded methylprednisolone 4 mg tablets in See Rx Instructions PO PER PKG DIR 03/11/21 a dose pack #21 tab Allergies Allergy/AdvReac Type Severity Reaction Status Date / Time erythromycin base Allergy Mild Verified 03/11/21 15:22 [ERYTHROMYCIN BASE] penicillin G [PENICILLIN G] Allergy Mild Verified 03/11/21 15:22 - Worker's Comp Is this a Worker's Comp case?: No [facility] History - Hepatitis A Screen Drug use history?: No High risk sexual behaviors?: No History of sexually transmitted
[2021-04-09 19:13] VITALS: BP 139/76; PULSE 107; RESP 18; TEMP 37
== END 2021-04-09 19:14 | disposition home or self-care (01) ==
PROVIDERS: Emergency Provider Nurse Practitioner; PCP Emergency Medicine
DX: U07.1 COVID-19 (principal); E10.9 Type 1 diabetes mellitus without complications; I10 Essential (primary) hypertension; F17.210 Nicotine dependence, cigarettes, uncomplicated
CPT/HCPCS: 87804; 99202; C9803; G0463; U0003; U0005

== ENCOUNTER 2021-10-02 12:08 | Emergency (ER) | payer MEDICAID, SELFPAY ==
--- NOTE | 2021-10-02 12:25 | HMH.EDUTC ---
[facility] [place] Disposition Clinical Impression: COVID-19 Disposition: Home, Self-Care Condition on Discharge: Good Instructions: DI for COVID-19 (Suspected or Confirmed ), Preventing the Spread of Coronavirus Discharge Instructions Additional Instructions: Drink plenty of fluids. Take tylenol or ibuprofen for pain or fever. Take the medications as directed. Follow up with your regular doctor. GO TO THE ER FOR ANY WORSENING SYMPTOMS Quarantine until you know the results of your covid-19 test. Notify your school or workplace of your results and follow their instructions regarding return to work/school. Prescriptions: Ondansetron [Zofran 4mg ODT] 4 mg PO Q8HP PRN #20 tab PRN Reason: Nausea Transmission Status: Received by [facility] Benzonatate [Benzonatate 100mg cap] 100 mg PO TIDP PRN #30 cap PRN Reason: Cough Transmission Status: Received by [facility] guaiFENesin [Mucinex 600mg tablet] 1 - 2 tab PO BIDP PRN #30 tab PRN Reason: Congestion [facility] Referrals: Andrew Gamble APRN [Primary Care Provider] - Forms: Work/School Release Time of Disposition: 13:13 Medical Decision Making - Medical Records Medical records reviewed: No: I reviewed the patient's medical records. - Pedro Inquiry Pt receiving controlled substance: No Vital Signs: 10/02/21 12:28 10/02/21 13:18 Temperature 98.2 F 98.2 F Temperature Source Oral Pulse Rate 89 Pulse Rate [Left] 89 Respiratory Rate 17 17 Blood Pressure 182/69 H Blood Pressure [Right Arm] 182/69 H Blood Pressure Mean [Right Arm] 106 02 Sat by Pulse Oximetry 99 - Lab Data Lab results reviewed: Yes: I reviewed the patient's lab results. [facility] [place] HPI - General Stated complaint: + home covid test 09/30, fever, body aches, cough Time Seen by Provider: 10/02/21 12:25 - History of Present Illness Provider Complaint: She started to feel bad 2 days ago. She has had a cough, sinus drainage, scratchy throat and body aches. She denies any shortness of breath. She tested positive on a home covid-19 test last night. She needs a pcr test for her work. - Related Data Home Medications Medication Instructions Recorded Confirmed buprenorphine 8 mg-naloxone 2 mg tab SUBLINGUAL 03/11/21 03/11/21 sublingual tablet Previous Rx's Medication Instructions Recorded methylprednisolone 4 mg tablets in See Rx Instructions PO PER PKG DIR 03/11/21 a dose pack #21 tab Benzonatate [Benzonatate 100mg 100 mg PO TIDP PRN #30 cap 10/02/21 cap] Ondansetron [Zofran 4mg ODT] 4 mg PO Q8HP PRN #20 tab 10/02/21 guaiFENesin [Mucinex 600mg tablet] 1 - 2 tab PO BIDP PRN #30 tab 10/02/21 Allergies Allergy/AdvReac Type Severity Reaction Status Date / Time erythromycin base Allergy Mild Verified 10/02/21 12:29 [ERYTHROMYCIN BASE] penicillin G [PENICILLIN G] Allergy Mild Verified 10/02/21 12:29 [facility] History - Hepatitis A Screen Attestation statement:: This patient has been screened for Hepatitis A risk factors. I have reviewed the patient's past medical history: Yes 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: Reports:: Diabetes Mellitus Type 1, Hypertension Denies:: Diabetes Mellitus Type 2, MRSA Laterality Cases: Right: Arthroscopy Shoulder, Bilateral: Other Other Surgeries: Yes: Appendectomy, Cholecystectomy, Hysterectomy-Total Amputation: No - Social History Smoking Status: Current every day smoker Tobacco Type: cigarettes # Packs/Day (cigarettes): 1 Alcohol Intake: never Substance Use Type: former substance user Occupational Status: employed Housing: house Household Members: children Family Hx:: No significant family history ROS Obtained: Yes All systems reviewed & no additional complaints - Constitutional Constitutional: Reports as per HPI - Eyes Eyes: Denies eye discharge - ENT Ears, Nose, Mouth, and Throat: Reports as per HPI - Cardiovascular Cardiovascular:
[2021-10-02 12:28] VITALS: BP 182/69; PULSE 89; RESP 17; TEMP 36.8; O2SAT 99; BMI 28.3
[2021-10-02 13:18] VITALS: BP 182/69; PULSE 89; RESP 17; TEMP 36.8
== END 2021-10-02 13:19 | disposition home or self-care (01) ==
PROVIDERS: Emergency Provider Nurse Practitioner Family; PCP Nurse Practitioner Family
DX: U07.1 COVID-19 (principal)
CPT/HCPCS: 99212; C9803; G0463; U0003; U0005

== ENCOUNTER 2022-01-20 14:42 | Emergency (ER) | payer MEDICAID, SELFPAY ==
[2022-01-20 15:36] VITALS: BP 141/72; PULSE 77; RESP 18; TEMP 37; O2SAT 98; BMI 28.3
--- NOTE | 2022-01-20 16:06 | EXP.UTC ---
Discharge Plan Disposition Patient Disposition: Home, Self-Care Condition: Good Prescriptions Prescriptions: No Action buprenorphine-naloxone 8-2 mg tablet, sublingual 1 tab SUBLINGUAL DAILY methylprednisolone [Medrol (William)] 4 mg tablets,dose pack See Rx Instructions PO PER PKG DIR Qty: 21 0RF Rx Instructions: PO PER PKG DIR benzonatate 100 MG capsule 100 mg PO TIDP PRN (Reason: Cough) Qty: 30 0RF ondansetron 4 MG tablet,disintegrating 4 mg PO Q8HP PRN (Reason: Nausea) Qty: 20 0RF guaifenesin 600 MG tablet extended release 12hr 1 - 2 tab PO BIDP PRN (Reason: Congestion) Qty: 30 0RF Referrals Follow up/Referrals: Provider,Referral, MD [Primary Care Provider] - See instructions Activity Restrictions/Add. Instructions Additional Instructions/Restrictions: *Monitor Temp, Over the counter Motrin or Tylenol as directed/as needed Tylenol every 4 hours and Motrin every 6 hours (as long as your family doctor has told you that you can take it) for fever or pain. and straight to ER if unable to lower temp less than 101.0 after medication given *Warm salt water gargles may help to soothe the throat *Throat Lozenges? *Warm fluids like tea with honey may help to soothe the throat? *Sleep elevated *Humidifier/Vaporizer Follow up IMMEDIATELY for new or worsening symptoms or no Noticeable improvement over the next 48-72 hours. 911 for difficulty breathing or swallowing You were tested for today for COVID19 your test result should be back in the next 24-48 hours, you may check your results on the [facility] Clinical Impressions Clinical Impression: Viral syndrome Stand Alone Forms Stand Alone Forms: Work/School Release Instructions Patient Instructions: DI for Viral Syndrome, Coronavirus Disease 2019, Preventing the Spread of Coronavirus Discharge Instructions Dis[place] ED [place] [facility] [place] General Stated complaint: headache, runny nose, fever Mode of Arrival: Ambulatory Source of Information: Patient Limitations: No Limitations Time Seen by Provider: 01/20/22 16:06 Description of Symptoms (Recalled from Triage Doc. by RN): pt had at home positive covid test yesterday. symptoms include sore throat, headache, congestion, sinus drainage that began wednesday HEENT Symptoms (Recalled from RN notes): Yes Resp Symptoms (Recalled from RN notes): Yes Skin Symptoms (Recalled from RN notes): No MS Symptoms (Recalled from RN notes): No Functional Status (Recalled from RN notes): n/a History of Present Illness Provider Complaint: Patient states that she started feeling bad on Wednesday but symptoms got worse yesterday States that she was having headache, body aches and chills State that it was like symptoms she had before with COVID so she did a home test and it showed positive but work wanted her to come in and get a PCR test Related Data Home Medications Medication Instructions Recorded Confirmed buprenorphine 8 mg-naloxone 2 mg 1 tab sublingual DAILY addiction 03/11/21 01/20/22 sublingual tablet Previous Rx's Medication Instructions Recorded methylprednisolone 4 mg tablets in See Rx Instructions PO PER PKG DIR 03/11/21 a dose pack (Medrol (William)) #21 tabs benzonatate 100 mg capsule 100 mg PO TIDP PRN Cough #30 caps 10/02/21 guaifenesin 600 mg tablet, 1 - 2 tab PO BIDP PRN Congestion 10/02/21 extended release 12 hr #30 tabs ondansetron 4 mg disintegrating 4 mg PO Q8HP PRN Nausea #20 tabs 10/02/21 tablet Allergies Allergy/AdvReac Type Severity Reaction Status Date / Time erythromycin base Allergy Mild Verified 01/20/22 15:40 [ERYTHROMYCIN BASE] penicillin G [PENICILLIN G] Allergy Mild Verified 01/20/22 15:40 Worker's Comp Is this a Worker's Comp case?: No PFSH PFSH Social History Smoking Status: Current every day smoker tobacco type: cigarettes packs per day: 1 alcoho
[2022-01-20 16:14] VITALS: BP 141/72; PULSE 77; RESP 18; TEMP 37
== END 2022-01-20 16:17 | disposition home or self-care (01) ==
PROVIDERS: Emergency Provider Nurse Practitioner
DX: U07.1 COVID-19 (principal)
CPT/HCPCS: 99212; C9803; G0463; U0003; U0005

== ENCOUNTER 2022-07-22 07:25 | Emergency (ER) | payer MEDICAID, SELFPAY ==
[2022-07-22 07:30] VITALS: BP 166/83; PULSE 79; RESP 20; TEMP 36.6; O2SAT 96; BMI 29.9
--- NOTE | 2022-07-22 07:32 | PC.NURSE ---
swabs sent to lab.
[2022-07-22 07:42] LABS: Coronavirus 19, PCR Not Detected (NotDetected); Influenza A, PCR Not Detected (NotDetected); Influenza B, PCR Not Detected (NotDetected)
[2022-07-22 07:49] LABS: Strep Scrn Group A (Rapid) Negative (Negative)
--- NOTE | 2022-07-22 08:28 | HMH.EDURI ---
Discharge Plan Disposition Patient Disposition: Home, Self-Care Prescriptions Prescriptions: New prednisone [prednisone] 20 mg tablet 20 mg PO BID Qty: 10 0RF levofloxacin 500 mg tablet 500 mg PO DAILY Qty: 7 0RF No Action buprenorphine-naloxone 8-2 mg tablet, sublingual 1 tab SUBLINGUAL DAILY Referrals Follow up/Referrals: Andrew Gamble APRN [Primary Care Provider] - See instructions Clinical Impressions Clinical Impression: Bronchitis Stand Alone Forms Stand Alone Forms: Work/School Release Instructions Patient Instructions: DI for Acute Bronchitis Discharge ED Provider: Renny (ED)Iain URI/Sore Throat HPI General Chief Complaint: Upper Respiratory Infection Stated Complaint: Sore throat, congestion, fever Time Seen by Provider: 07/22/22 08:29 Mode of Arrival: Ambulatory Source of Information: Patient and Medical Record Limitations: No Limitations Description of Symptoms (Recalled from ER Triage Doc. by RN): pt to ed c/o sore throat and non-productive cough since wednesday. pt denies headache/fever. 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 Complaint: cough and sore throat Onset (ago): day(s) Duration: intermittent Severity: moderate Able to tolerate fluids by mouth: Yes Associated symptoms: denies other symptoms Treatments prior to arrival: none Related Data Home Medications Medication Instructions Recorded Confirmed buprenorphine 8 mg-naloxone 2 mg 1 tab sublingual DAILY addiction 03/11/21 06/30/22 sublingual tablet Previous Rx's Medication Instructions Recorded levofloxacin 500 mg tablet 500 mg PO DAILY #7 tabs 07/22/22 prednisone 20 mg tablet 20 mg PO BID #10 tabs 07/22/22 Allergies Allergy/AdvReac Type Severity Reaction Status Date / Time erythromycin base Allergy Mild Verified 06/30/22 09:53 [ERYTHROMYCIN BASE] penicillin G [PENICILLIN G] Allergy Mild Verified 06/30/22 09:53 [facility] Disclaimer: The information contained in this section may have been updated after the patient was seen, as this information can be updated by other users. Social History Smoking Status: Never smoker alcohol intake: never substance use type: former substance user current occupational status: employed Travel in the last 8 weeks: None household members: children housing: house ROS Obtained: Yes All systems reviewed & no additional complaints except as documented Physical Exam General General appearance: alert Head Head exam: normocephalic Eye Eye exam: Present PERRL and EOMI ENT ENT exam: Present mucous membranes moist Expanded ENT Exam Throat exam: Present tonsillar erythema Neck Neck exam: Present trachea midline Respiratory Respiratory exam: Absent respiratory distress Cardiovascular Cardiovascular exam: Present regular rate Abdominal Exam Abdominal exam: Present soft Extremities Exam Extremities exam: Present full ROM Neurological Exam Neurological exam: Present alert and CN II-XII intact; Absent motor sensory deficit Psychiatric Psychiatric exam: Present normal affect Skin Skin exam: Absent rash Medical Decision Making Medical Records Medical records reviewed: Yes I reviewed the patient's medical records. Pedro Inquiry Pt receiving controlled substance: No Vital Signs: 07/22/22 07:30 Temperature 97.9 F Temperature Source Oral Pulse Rate [Left Radial] 79 Respiratory Rate 20 Blood Pressure [Right Arm] 166/83 H Blood Pressure Mean [Right Arm] 110 02 Sat by Pulse Oximetry 96 Oxygen Delivery Method Room Air Lab Data Lab results reviewed: Yes I reviewed the patient's lab results. Lab Results 07/22/22 07:27: Group A Strep Rapid Negative 07/22/22 07:27: SARS-CoV-2 (PCR) Not detected, Influenza A Untype (PCR) Not detected, Influenza Type B (PCR) Not detected Orders (Tests/Meds): ORDERS Catego
[2022-07-22 08:34] VITALS: BP 168/81; PULSE 92; RESP 20; TEMP 36.6; O2SAT 97
== END 2022-07-22 08:49 | disposition home or self-care (01) ==
PROVIDERS: Emergency Provider Emergency Medicine; PCP Nurse Practitioner Family
DX: J20.9 Acute bronchitis, unspecified (principal)
CPT/HCPCS: 87430; 99283; 99284; C9803; U0003; U0005

== ENCOUNTER → 2022-09-11 13:36 | Outpatient (CLI) | payer MEDICAID, SELFPAY ==
--- NOTE | 2022-09-11 13:40 | XR_ITS ---
FINAL REPORT CLINICAL HISTORY: right carpal tunnel syndrome COMPARISON: None FINDINGS: RIGHT WRIST Three views demonstrate no acute fracture or dislocation. There is mild degenerative change of the radial aspect of the wrist. The visualized joint spaces are normally aligned. Cysts are noted in the scaphoid. IMPRESSION: No acute bony abnormality. Reviewed, Interpreted and Dictated by Jun Reza III, MD Transcribed by Kassie Powell Authenticated and [facility]
== END ==
PROVIDERS: PCP Nurse Practitioner Family; Visit Provider Orthopaedic Surgery
DX: G56.01 Carpal tunnel syndrome, right upper limb (principal)
CPT/HCPCS: 73110

== ENCOUNTER 2023-03-27 15:20 | Emergency (ER) | payer MEDICAID, SELFPAY ==
[2023-03-27 16:05] VITALS: BP 158/57; PULSE 74; RESP 20; TEMP 36.6; O2SAT 97; BMI 27.8
--- NOTE | 2023-03-27 16:13 | ED_ITS ---
Discharge Plan Disposition Patient Disposition: Home, Self-Care Condition: Good Prescriptions Prescriptions: New methylprednisolone 4 mg Tablets,Dose Pack 4 mg PO DIRECTED 6 Days Qty: 21 0RF Rx Instructions: Take 1 pack as directed for 6 days No Action buprenorphine-naloxone 8-2 mg tablet, sublingual 1 tab SUBLINGUAL DAILY Referrals Follow up/Referrals: Andrew Gamble APRN [Primary Care Provider] - See instructions Rikki Hart DO [Staff Physician] - See instructions Activity Restrictions/Add. Instructions Additional Instructions/Restrictions: Rest the extremity, Wear the anirudh wrap for compression, Elevate the extremity as tolerated while you are resting. Take the medications as directed. Follow up with Dr. Hart (orthopedics). I put in a referral but you need to call his office and schedule an appointment. Follow up with your regular doctor. GO TO THE ER FOR ANY WORSENING SYMPTOMS Clinical Impressions Clinical Impression: Left knee pain Stand Alone Forms Stand Alone Forms: Work/School Release Instructions Patient Instructions: DI for Knee Pain, How to Apply an Elastic Wrap on Knee Discharge ED Provider: Vito Kincaid [facility] General Stated complaint: left knee pain Time Seen by Provider: 03/27/23 16:13 History of Present Illness Provider Complaint: She states that for the past 2 weeks she has had left knee pain and swelling. She denies any known injury. She has had episodes of pain like this in the past. Related Data Home Medications Medication Instructions Recorded Confirmed buprenorphine 8 mg-naloxone 2 mg 1 tab sublingual DAILY addiction 03/11/21 03/27/23 sublingual tablet Previous Rx's Medication Instructions Recorded methylprednisolone 4 mg tablets in 4 mg PO DIRECTED 6 days #21 tabs 03/27/23 a dose pack Allergies Allergy/AdvReac Type Severity Reaction Status Date / Time erythromycin base Allergy Mild Verified 10/28/22 15:23 [ERYTHROMYCIN BASE] penicillin G [PENICILLIN G] Allergy Mild Verified 10/28/22 15:23 neomycin Allergy Verified 03/27/23 16:16 [facility] Disclaimer: The information contained in this section may have been updated after the patient was seen, as this information can be updated by other users. 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 (Updated 03/27/23 @ 17:23 by Vito Kincaid APRN) Kidney stone Urinary tract infection Surgical History (Updated 03/27/23 @ 16:17 by Rebekah Koo RN) History of appendectomy History of cholecystectomy History of hysterectomy History of tubal ligation Social History Smoking Status: Current every day smoker tobacco type: cigarettes packs per day: 1 quit status: considering quitting alcohol intake: never substance use type: former substance user current occupational status: employed Travel in the last 8 weeks: None household members: children housing: house ROS Obtained: Yes All systems reviewed & no additional complaints except as documented Constitutional Constitutional: Denies chills and Denies fever(s) Eyes Eyes: Denies eye discharge ENT Ears, Nose, Mouth, and Throat: Denies dizziness, Denies otalgia and Denies sore throat Cardiovascular Cardiovascular: Denies chest pain Respiratory Respiratory: Denies shortness of breath, Denies chest congestion, Denies cough, Denies stridor and Denies wheezing Gastrointestinal Gastrointestingal: Denies nausea or vomiting Musculoskeletal Musculoskeletal: Reports as per HPI Integumentary/Breasts Skin/Breast: Denies rash Neurologic Neurologic: Denies dizziness and Denies paresthesias Allergic/Immunologic Allergic/Immunologic: Denies wheezing Physical Exam General General appearance: alert and in no apparent distress Head Head exam: atraumatic, normocephalic and normal inspection Eye Eye exam: Present normal appearance, PERRL and EOMI ENT ENT exam: Present normal exam, normal oropharynx, mucous membranes moist, TM's normal bilaterally and normal external ear exam Neck Neck exam: Present normal inspection, full ROM and trachea midline; Absent meningismus or lymphadenopathy Chest Chest inspection: Present normal inspection and symmetric chest wall rise; Absent tenderness Respiratory Respiratory exam: Present normal lung sounds bilaterally; Absent respiratory distress Cardiovascular Cardiovascular exam: Present regular rate and normal rhythm; Absent JVD Abdominal Exam Abdominal exam: Present soft and normal bowel sounds; Absent distention, tenderness or guarding Extremities Exam Extremities exam: Present normal capillary refill; Absent calf tenderness Expanded Lower Extremity Exam Left: Hip/Pelvis exam: Present normal inspection and full ROM; Absent tenderness Upper leg exam: Present normal inspection and full ROM; Absent tenderness Knee exam: Present full ROM, tenderness, swelling and knee extension intact; Absent abrasion, laceration, ecchymosis, deformity, crepitus, dislocation, erythema, effusion, anterior drawer sign, posterior draw sign, pain with valgus, laxity with valgus, pain with varus or laxity with varus Lower leg exam: Present normal inspection, full ROM and Achilles tendon intact; Absent tenderness or Homans' sign Ankle exam: Present normal inspection and full ROM; Absent tenderness Foot/toe exam: Present normal inspection and full ROM; Absent tenderness Neurovascular/Tendon exam: Present normal capillary refill; Absent pulse deficit, motor deficit, sensory deficit, tendon deficit or extremity cold to touch Gait: observed and normal Back Exam Back exam: Present normal inspection; Absent tenderness Neurological Exam Neurological exam: Present alert and oriented X3 Psychiatric Psychiatric exam: Present normal affect and normal mood Skin Skin exam: Present warm, dry, intact and normal color Lymphatic Lymphatic Findings: no adenopathy Medical Decision Making Medical Records Medical records reviewed: No I reviewed the patient's medical records. Pedro Inquiry Pt receiving controlled substance: No Radiology Data #1: Image(s): Knee Image Reviewed: Yes I reviewed the patient's radiology image and Yes I have reviewed radiologist's interpretation Preliminary Findings: No Fracture Seen PROCEDURE INFORMATION: Exam: XR Left Knee Exam date and time: 03/27/2023 4:23 PM Age: 52 years old Clinical indication: Pain; Knee; Left; Additional info: Pain, swelling TECHNIQUE: Imaging protocol: Radiologic exam of the left knee. Views: 3 views. COMPARISON: No relevant prior studies available. FINDINGS: Bones/joints: No fracture or dislocation. Mild medial compartment degenerative joint disease. Soft tissues: Normal. IMPRESSION: 1. No acute findings. 2. Mild medial compartment degenerative joint disease. Procedures Risk/Benefits of Procedure(s) Were Explained: Yes Orthopedic Splinting/Casting Injury #1: Side: left Lower Extremity Injury Location: knee Lower Extremity Immobilizer: Anirudh wrap and applied by nurse/dr luong Post Cast/Splinting Neuro Status: intact and no change Post Cast/Splinting Vasc Status: intact and no change
--- NOTE | 2023-03-27 16:20 | XR_ITS ---
PROCEDURE INFORMATION: Exam: XR Left Knee Exam date and time: 03/27/2023 4:23 PM Age: 52 years old Clinical indication: Pain; Knee; Left; Additional info: Pain, swelling TECHNIQUE: Imaging protocol: Radiologic exam of the left knee. Views: 3 views. COMPARISON: No relevant prior studies available. FINDINGS: Bones/joints: No fracture or dislocation. Mild medial compartment degenerative joint disease. Soft tissues: Normal. IMPRESSION: 1. No acute findings. 2. Mild medial compartment degenerative joint disease.
[2023-03-27 17:28] VITALS: BP 158/57; PULSE 74; RESP 20; TEMP 36.6; O2SAT 97
== END 2023-03-27 17:35 | disposition home or self-care (01) ==
PROVIDERS: Emergency Provider Nurse Practitioner Family; PCP Nurse Practitioner Family
DX: M25.562 Pain in left knee (principal); F17.210 Nicotine dependence, cigarettes, uncomplicated
CPT/HCPCS: 73562; 99212; 99214; G0463

== ENCOUNTER 2023-05-22 17:48 | Emergency (ER) | payer MEDICAID, SELFPAY ==
[2023-05-22 18:00] VITALS: BP 177/75; PULSE 89; RESP 19; TEMP 36.7; O2SAT 98; BMI 29.4
[2023-05-22 18:18] LABS: Apearance,Urine Slightly Cloudy (Clear); Bilirubin,Urine Negative (Negative); Blood, Urine Negative (Negative); Color,Urine Dark Yellow (Yellow); Glucose,Urine (UA) Negative (Negative); Ketones,Urine Negative (Negative); PH,Urine 8.5 (5.0-8.5); Protein,Urine Trace (Negative); UTC Leukocyte Esterase,Urine Trace (Negative); UTC Nitrate,Urine Negative (Negative); Urobilinogen,Urine 0.2 EU/dl (0.2)
--- NOTE | 2023-05-22 18:19 | PC.NURSE ---
Pt states that she has had rocephin shots before and does well with them.
[2023-05-22] MEDS: LIDOCAINE 1% 5ML PF VIAL IM (18:23)
[2023-05-22] MEDS: cefTRIAXone 1GM VIAL 1 GM IM (18:23)
--- NOTE | 2023-05-22 18:26 | EXP.UTC ---
Discharge Plan Disposition Patient Disposition: Home, Self-Care Condition: Good Prescriptions Prescriptions: New cephalexin [cephalexin] 500 mg tablet 500 mg PO BID 7 Days Qty: 14 0RF Rx Instructions: start tomorrow- pt states she can take No Action buprenorphine-naloxone 8-2 mg tablet, sublingual 1 tab SUBLINGUAL DAILY Referrals Follow up/Referrals: Andrew Gamble APRN [Primary Care Provider] - See instructions Activity Restrictions/Add. Instructions Additional Instructions/Restrictions: Increase fluids, water and not soda or tea. Can drink cranberry juice or cranberry extract. Wipe front to back Wear cotton underwear Empty bladder after intercourse Start antibiotics immediately and make sure you take the full course although you may start to see improvement over the next 48 hours. You can eat yogurt or take probiotics to decrease diarrhea or yeast infection caused by the antibiotic Be sure to follow-up anytime for new or worsening symptoms in 48 hours for wound urine culture results be sure to let you PCP no recent urine for culture so they can request records and ensure that you have appropriate antibiotic if you are not getting better or getting worse. If symptoms worsen or do not improve return or be seen in the ER. Follow-up with primary care this week. Clinical Impressions Clinical Impression: UTI (urinary tract infection) Qualifiers: Urinary tract infection type: acute cystitis Hematuria presence: without hematuria Qualified Code(s): N30.00 - Acute cystitis without hematuria Instructions Patient Instructions: Urinary Tract Infection, DI for Urinary Tract Infection (UTI) Discharge ED [facility] [place] General Stated complaint: vomiting, C[place]O Mode of Arrival: Ambulatory Source of Information: Patient Limitations: No Limitations Time Seen by Provider: 05/22/23 18:26 Description of Symptoms (Recalled from Triage Doc. by RN): Pt's symptoms are vomiting, right flank pain, and burning with urination. HEENT Symptoms (Recalled from RN notes): No Resp Symptoms (Recalled from RN notes): No Skin Symptoms (Recalled from RN notes): No MS Symptoms (Recalled from RN notes): No Functional Status (Recalled from RN notes): n/a History of Present Illness Provider Complaint: 52 yr old female presents for vomiting, right flank pain, and burning with urination. Related Data Home Medications Medication Instructions Recorded Confirmed buprenorphine 8 mg-naloxone 2 mg 1 tab sublingual DAILY addiction 03/11/21 05/22/23 sublingual tablet Previous Rx's Medication Instructions Recorded cephalexin 500 mg tablet 500 mg PO BID 7 days #14 tabs 05/22/23 Allergies Allergy/AdvReac Type Severity Reaction Status Date / Time erythromycin base Allergy Mild Verified 05/22/23 18:16 [ERYTHROMYCIN BASE] penicillin G [PENICILLIN G] Allergy Mild Verified 05/22/23 18:16 neomycin Allergy Verified 05/22/23 18:16 Worker's Comp Is this a Worker's Comp case?: No [facility] Disclaimer: The information contained in this section may have been updated after the patient was seen, as this information can be updated by other users. 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 (Reviewed 05/22/23 @ 18:27 by Ryan Willard ([facility]), [employer]IEF [employer]TAIN) Kidney stone Urinary tract infection Surgical History (Reviewed 05/22/23 @ 18:27 by Ryan Willard ([facility]), RELIEF CAPTAIN) History of appendectomy History of cholecystectomy History of hysterectomy History of tubal ligation Social History (Reviewed 05/22/23 @ 18:27 by Ryan Willard ([facility]), RELIEF CAPTAIN) Smoking Status: Current every day smoker tobacco type: cigarettes packs per day: 1 quit status: considering quitting alcohol intake: never substance use type: former substance user current occupational status: employed Travel in the last 8 weeks: None household members: children housing: house ROS Obtained: Yes All systems reviewed & no additional complaints except as documented Constitutional Constitutional: Reports system reviewed and no additional complaints, except as documented and Reports as per HPI Eyes Eyes: Reports system reviewed and no additional complaints, except as documented ENT Ears, Nose, Mouth, and Throat: Reports system reviewed and no additional complaints, except as documented Cardiovascular Cardiovascular: Reports system reviewed and no additional complaints, except as documented Respiratory Respiratory: Reports system reviewed and no additional complaints, except as documented Genitourinary Female Genitourinary: Reports system reviewed and no additional complaints, except as documented, Reports as per HPI, Reports flank pain, Reports urinary frequency, Reports urinary hesitancy and Reports urinary urgency Integumentary/Breasts Skin/Breast: Reports system reviewed and no additional complaints, except as documented Neurologic Neurologic: Reports system reviewed and no additional complaints, except as documented Endocrine Endocrine: Reports system reviewed and no additional complaints, except as documented Hematologic/Lymphatic Henatologic/Lymphatic: Reports system reviewed and no additional complaints, except as documented Allergic/Immunologic Allergic/Immunologic: Reports system reviewed and no additional complaints, except as documented Physical Exam General General appearance: alert and in no apparent distress Head Head exam: atraumatic Eye Eye exam: Present normal appearance and PERRL ENT ENT exam: Present normal exam, normal oropharynx, mucous membranes moist and TM's normal bilaterally Respiratory Respiratory exam: Present normal lung sounds bilaterally Cardiovascular Cardiovascular exam: Present regular rate and normal rhythm Abdominal Exam Abdominal exam: Present soft and normal bowel sounds Neurological Exam Neurological exam: Present alert and oriented X3 Skin Skin exam: Present warm and intact Medical Decision Making Medical Records Medical records reviewed: Yes I reviewed the patient's medical records. Pedro Inquiry Pt receiving controlled substance: No Pedro was queried for this patient: No Vital Signs: 05/22/23 18:00 Temperature 98.0 F Temperature Source Oral Pulse Rate [Right Radial] 89 Respiratory Rate 19 Blood Pressure [Right Arm] 177/75 H Blood Pressure Mean [Right Arm] 109 Blood Pressure Source [Right Arm] Automatic Cuff Blood Pressure Position [Right Arm] Sitting 02 Sat by Pulse Oximetry 98 Oxygen Delivery Method Room Air Lab Data Lab results reviewed: Yes I reviewed the patient's lab results. Lab Results 05/22/23 18:17: Urine Color Dark yellow, Urine Appearance Slightly cloudy, Urine pH 8.5, Ur Specific [place] 1.020, Urine Protein Trace, Urine Glucose (UA) Negative, Urine Ketones Negative, Urine Blood Negative, Urine Nitrate Negative, Urine Bilirubin Negative, Urine Urobilinogen 0.2, Ur Leukocyte Esterase Trace Orders (Tests/Meds): ED MEDICATIONS Generic Name Dose Route Start Last Admin Trade Name Juan PRN Reason Stop Dose Admin Ceftriaxone Sodium 1 gm 05/22/23 18:19 05/22/23 18:23 Ceftriaxone 1gm Vial IM 05/22/23 18:20 1 gm ONCE ONE Administration Lidocaine HCl 0 ml 05/22/23 18:19 05/22/23 18:23 Lidocaine 1% 5ml Pf Vial IM 05/22/23 18:20 2 ml ONCE ONE Administration ORDERS Category Date Time Status Urine Culture Stat Micro 05/22/23 18:18 Ordered
[2023-05-22 18:30] VITALS: BP 177/75; PULSE 89; RESP 19; TEMP 36.7; O2SAT 98
== END 2023-05-22 18:49 | disposition home or self-care (01) ==
PROVIDERS: Emergency Provider Nurse Practitioner Family; PCP Nurse Practitioner Family
DX: N39.0 Urinary tract infection, site not specified (principal); B96.89 Other specified bacterial agents as the cause of diseases classified elsewhere; R11.2 Nausea with vomiting, unspecified; M54.59 Other low back pain; F17.210 Nicotine dependence, cigarettes, uncomplicated
CPT/HCPCS: 81003; 87086; 96372; 99212; 99214; G0463; J0696

== ENCOUNTER 2023-06-09 18:07 | Emergency (ER) | payer MEDICAID, SELFPAY ==
[2023-06-09 19:30] VITALS: BP 158/85; PULSE 69; RESP 18; TEMP 36.8; O2SAT 96; BMI 27.4
--- NOTE | 2023-06-09 19:30 | ED_ITS ---
Discharge Plan Disposition Patient Disposition: Home, Self-Care Condition: Good Prescriptions Prescriptions: New benzonatate 100 mg capsule 100 mg PO TIDP PRN (Reason: Cough) Qty: 30 0RF methylprednisolone 4 mg Tablets,Dose Pack 4 mg PO DIRECTED 6 Days Qty: 21 0RF Rx Instructions: Take 1 pack as directed for 6 days guaifenesin [Mucinex] 600 mg tablet extended release 12hr 600 - 1,200 mg PO BIDP PRN (Reason: Congestion) Qty: 30 0RF cefdinir 300 mg capsule 300 mg PO BID Qty: 20 0RF No Action buprenorphine-naloxone 8-2 mg tablet, sublingual 1 tab SUBLINGUAL DAILY cephalexin [cephalexin] 500 mg tablet 500 mg PO BID 7 Days Qty: 14 0RF Rx Instructions: start tomorrow- pt states she can take Referrals Follow up/Referrals: Provider,Referral, MD [Primary Care Provider] - See instructions Activity Restrictions/Add. Instructions Additional Instructions/Restrictions: Drink plenty of fluids. Take tylenol for pain or fever. Take the medications as directed. Follow up with your regular doctor. GO TO THE ER FOR ANY WORSENING SYMPTOMS Clinical Impressions Clinical Impression: Benign paroxysmal positional vertigo Otitis media Qualifiers: Otitis media type: unspecified nonsuppurative Laterality: left Qualified Code(s): H65.92 - Unspecified nonsuppurative otitis media, left ear Stand Alone Forms Stand Alone Forms: Work/School Release Instructions Patient Instructions: Middle Ear Infection, Benign Paroxysmal Positional Vertigo Discharge ED Provider: Vito Kincaid [facility] General Stated complaint: cant hear out of left ear Time Seen by Provider: 06/09/23 19:30 History of Present Illness Provider Complaint: She states that for the past 3 days she has had decreased hearing in her left ear. She has also had intermittent left ear pain and d izziness when she turns her head to the right too fast. She has had a scratchy throat, sinus congestion, and a cough also. She denies significant chest congestion. Related Data Home Medications Medication Instructions Recorded Confirmed buprenorphine 8 mg-naloxone 2 mg 1 tab sublingual DAILY addiction 03/11/21 06/09/23 sublingual tablet Previous Rx's Medication Instructions Recorded cephalexin 500 mg tablet 500 mg PO BID 7 days #14 tabs 05/22/23 benzonatate 100 mg capsule 100 mg PO TIDP PRN Cough #30 caps 06/09/23 cefdinir 300 mg capsule 300 mg PO BID #20 caps 06/09/23 guaifenesin 600 mg tablet, 600 - 1,200 mg (1 - 2 x 600 mg) PO 06/09/23 extended release 12 hr (Mucinex) BIDP PRN Congestion #30 tabs methylprednisolone 4 mg tablets in 4 mg PO DIRECTED 6 days #21 tabs 06/09/23 a dose pack Allergies Allergy/AdvReac Type Severity Reaction Status Date / Time erythromycin base Allergy Mild Verified 06/09/23 19:36 [ERYTHROMYCIN BASE] penicillin G [PENICILLIN G] Allergy Mild Verified 06/09/23 19:36 neomycin Allergy Verified 06/09/23 19:36 [facility] Disclaimer: The information contained in this section may have been updated after the [facility] was seen, as this information can be updated by other users. 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) History of appendectomy History of cholecystectomy History of hysterectomy History of tubal ligation Social History Smoking Status: Current every day smoker tobacco type: cigarettes packs per day: 1 quit status: considering quitting alcohol intake: never substance use type: former substance user current occupational status: employed Travel in the last 8 weeks: None household members: children housing: house ROS Obtained: Yes All systems reviewed & no additional complaints except as documented Constitutional Constitutional: Denies chills, Reports fever(s), Denies headache(s) and Reports poor appetite Eyes Eyes: Denies eye discharge ENT Ears, Nose, Mouth, and Throat: Reports dizziness, Denies ear discharge, Reports otalgia, Denies facial pain, Denies headache(s), Denies hearing loss, Reports nasal congestion, Reports post nasal drip, Denies sinus pain, Reports sinus pressure, Reports sore throat, Denies throat swelling, Denies tinnitus and Reports vertigo Cardiovascular Cardiovascular: Denies chest pain and Denies dyspnea Respiratory Respiratory: Denies chest congestion, Reports cough and Denies dyspnea Gastrointestinal Gastrointestingal: Denies abdominal pain, diarrhea, nausea or vomiting Musculoskeletal Musculoskeletal: Denies arthralgias Integumentary/Breasts Skin/Breast: Denies rash Neurologic Neurologic: Reports dizziness, Denies headache(s) and Reports vertigo Allergic/Immunologic Allergic/Immunologic: Denies throat swelling Physical Exam General General appearance: alert and in no apparent distress Head Head exam: atraumatic, normocephalic and normal inspection Eye Eye exam: Present normal appearance; Absent PERRL or EOMI ENT ENT exam: Present mucous membranes moist and normal external ear exam Expanded ENT Exam TM/Canal exam: Bilateral TM: erythema, bulging and effusion Nose exam: Absent sinus tenderness Nasal speculum exam: Bilateral: normal Mouth exam: Present normal external inspection and other; Absent drooling Teeth exam: Present normal inspection Throat exam: Present tonsillar erythema and tonsillomegaly Neck Neck exam: Present normal inspection, full ROM and trachea midline; Absent tenderness, meningismus or lymphadenopathy Chest Chest inspection: Present normal inspection and symmetric chest wall rise; Absent tenderness Respiratory Respiratory exam: Present normal lung sounds bilaterally; Absent respiratory distress, wheezes or stridor Cardiovascular Cardiovascular exam: Present regular rate, normal rhythm and normal heart sounds; Absent tachycardia or irregular rhythm Abdominal Exam Abdominal exam: Present soft and normal bowel sounds; Absent distention, tenderness, guarding, rebound or rigidity Extremities Exam Extremities exam: Present normal inspection and normal capillary refill; Absent tenderness, joint swelling or calf tenderness Back Exam Back exam: Present normal inspection and full ROM; Absent tenderness, CVA tenderness (R) or CVA tenderness (L) Neurological Exam Neurological exam: Present alert, oriented X3, CN II-XII intact, normal gait and reflexes normal; Absent motor sensory deficit Psychiatric Psychiatric exam: Present normal affect and normal mood Skin Skin exam: Present warm, dry, intact and normal color Lymphatic Lymphatic Findings: no adenopathy Medical Decision Making Medical Records Medical records reviewed: No I reviewed the patient's medical records. Pedro Inquiry Pt receiving controlled substance: No Lab Data Lab results reviewed: Yes I reviewed the patient's lab results.
[2023-06-09 19:55] VITALS: BP 170/89; PULSE 89; RESP 18; TEMP 37.3; O2SAT 100
== END 2023-06-09 19:55 | disposition home or self-care (01) ==
PROVIDERS: Emergency Provider Nurse Practitioner Family
DX: H65.92 Unspecified nonsuppurative otitis media, left ear (principal); H81.10 Benign paroxysmal vertigo, unspecified ear; R09.81 Nasal congestion; R05.9 Cough, unspecified; H91.92 Unspecified hearing loss, left ear; F17.210 Nicotine dependence, cigarettes, uncomplicated
CPT/HCPCS: 99212; 99214; G0463

== ENCOUNTER 2023-12-16 10:38 | Outpatient (CLI) | payer BC, SELFPAY ==
[2023-12-17 11:01] LABS: Creatinine,Urine Random 147 mg/dL (Not Estab.)
[2023-12-17 11:03] LABS: Microalbumin/Creatinine Ratio 7.8
== END 2023-12-16 23:59 | disposition home or self-care (01) ==
LOC: LAB.DROPOF 12-17 10:38
PROVIDERS: PCP Internal Medicine; Visit Provider Internal Medicine
DX: E86.0 Dehydration (principal); G56.00 Carpal tunnel syndrome, unspecified upper limb
CPT/HCPCS: 82043; 82570; 87086; 87088; 87186

== ENCOUNTER 2023-12-20 19:35 | Outpatient (CLI) | payer BC, SELFPAY ==
[2023-12-20 19:57] LABS: Basophils # 0.1 K/mm3 (0-0.2); Basophils % 1.4 % (0.1-2.0); Eosinophils # 0.2 K/mm3 (0.0-0.4); Eosinophils % 4.2 % (0.1-12.0); Hematocrit 48.1 % (37.0-47.0); Hemoglobin 15.2 g/dL (12.2-16.2); Lymphocytes # 1.7 K/mm3 (0.7-4.5); Lymphocytes % 34.6 % (10-50); Mean Corpuscular HGB Conc 31.7 g/dL (31.8-35.4); Mean Corpuscular Hemoglobin 28.7 pg (27.0-31.2); Mean Corpuscular Volume 90.6 fl (81-99); Mean Platelet Volume 10.3 fl (7.4-10.4); Monocytes # 0.3 K/mm3 (0.1-1.0); Monocytes % 5.8 % (1.7-9.3); Neutrophils # 2.7 K/mm3 (1.8-7.8); Platelet Count 225 K/mm3 (142-424); Red Blood Count 5.31 M/mm3 (4.20-5.40)
[2023-12-20 20:45] LABS: Alanine Aminotransferase 23 U/L (12-78); Albumin Level 4.4 g/dl (3.5-5.0); Albumin/Globulin Ratio 1.3 (1.1-1.8); Alkaline Phosphatase 101 U/L (38-126); Anion Gap 9.2 mEq/L (5-15); Aspartate Amino Transferase 27 U/L (14-36); Bilirubin,Total 0.7 mg/dl (0.2-1.3); Blood Urea Nitrogen 25 mg/dl (7-17); Calcium 9.4 mg/dl (8.4-10.2); Carbon Dioxide 29 mmol/L (22.0-30.0); Chloride 105 mmol/L (98-107); Cholesterol 254 mg/dl (140-200); Estimated Glomerular Filt Rate 58 ml/min (>60); GFR (African American) 70 ML/MIN (>60); Globulin 3.3 g/dL (1.3-3.2); Glucose 91 mg/dl (74-100); HDL Cholesterol 42 mg/dl (40-60); Potassium 4.2 mmoL/L (3.5-5.1); Sodium 139 mmol/L (136-145); Total Protein,Serum 7.7 g/dl (6.3-8.2); Triglycerides 254 mg/dl (30-150); VLDL Cholesterol 51 mg/dL (0-40)
[2023-12-20 21:24] LABS: Direct LDL Cholesterol 131.68 mg/dL (100-129)
[2023-12-20 21:43] LABS: HIV (1&2) Antibody Rapid NONREACTIVE (NONREACTIVE)
[2023-12-20 22:55] LABS: Hemoglobin A1C 5.5 % (4.0-6.0)
== END 2023-12-20 23:59 | disposition home or self-care (01) ==
LOC: LAB.DROPOF 19:36
PROVIDERS: PCP Internal Medicine; Visit Provider Internal Medicine
DX: G56.00 Carpal tunnel syndrome, unspecified upper limb (principal)
CPT/HCPCS: 80053; 80061; 83036; 85025; 87389

== ENCOUNTER 2024-02-17 12:04 | Outpatient (CLI) | payer BC, SELFPAY ==
[2024-02-17 19:32] LABS: Alanine Aminotransferase 29 U/L (12-78); Albumin Level 4.3 g/dl (3.5-5.0); Albumin/Globulin Ratio 1.6 (1.1-1.8); Alkaline Phosphatase 100 U/L (38-126); Anion Gap 13.1 mEq/L (5-15); Aspartate Amino Transferase 29 U/L (14-36); Bilirubin,Total 0.8 mg/dl (0.2-1.3); Blood Urea Nitrogen 19 mg/dl (7-17); Calcium 9.4 mg/dl (8.4-10.2); Carbon Dioxide 25 mmol/L (22.0-30.0); Chloride 108 mmol/L (98-107); Chol/HDL Ratio 3.9 (1-3.5); Cholesterol 160 mg/dl (140-200); Estimated Glomerular Filt Rate 74 ml/min (>60); GFR (African American) 90 ML/MIN (>60); Globulin 2.7 g/dL (1.3-3.2); Glucose 104 mg/dl (74-100); HDL Cholesterol 41 mg/dl (40-60); Potassium 4.1 mmoL/L (3.5-5.1); Sodium 142 mmol/L (136-145); Triglycerides 155 mg/dl (30-150); VLDL Cholesterol 31 mg/dL (0-40)
[2024-02-17 19:43] LABS: Direct LDL Cholesterol 95.34 mg/dL (100-129)
== END 2024-02-17 23:59 | disposition home or self-care (01) ==
LOC: LAB.DROPOF 02-18 07:50
PROVIDERS: PCP Internal Medicine; Visit Provider Internal Medicine
DX: E78.2 Mixed hyperlipidemia (principal)
CPT/HCPCS: 80053; 80061